=== PATIENT | female | born 1985 | race Caucasian/White ===

== ENCOUNTER → 2020-10-16 02:35 | Outpatient (CLI) | payer OTHER, SELFPAY ==
[2020-10-16 18:15] LABS: SARS-CoV-2 RNA PCR Negative
== END ==
PROVIDERS: PCP Family Medicine; Visit Provider Obstetrics & Gynecology Gynecology
DX: Z01.812 Encounter for preprocedural laboratory examination (principal); Z20.822 Contact with and (suspected) exposure to COVID-19
CPT/HCPCS: C9803; U0003; U0005

== ENCOUNTER 2020-10-19 00:39 | Day surgery (SDC) | payer OTHER, SELFPAY ==
[2020-10-09 13:35] VITALS: BMI 25.1
[2020-10-19 08:48] VITALS: BMI 25.4
[2020-10-19] MEDS: LACTATED RINGERS 1,000 ML 30 ML IV CONT (08:51)
[2020-10-19] MEDS: ACETAMINOPHEN 500 MG TABLET 1000 MG PO (08:52)
--- NOTE | 2020-10-19 08:57 | WPDHPUPDATE1 ---
History and Physical Update Update Date/Time: 10/19/20 08:57 History and Physical has been reviewed, including an updated exam of the patient. There are NO changes in the patient's condition. Risks, benefits, and alternatives have been discussed and questions answered. Patient agrees to proceed with procedure.
--- NOTE | 2020-10-19 08:57 | PM.HPGS ---
History of Present Illness History of Present Illness Consent: Risks, benefits, and alternatives have been discussed and questions answered. Patient agrees to proceed with procedure. Chief complaint: atypical glandular cells Narrative: Meggan Deutsch is a 35 year old female with Pap smear reading atypical glandular cells at her well check in March of 2020. Workup including colposcopy, endocervical curettings, and endometrial biopsy were negative in May of 2020. The plan was to repeat the Pap and endocervical curettings every 3 months. The Pap in August of 2020 was also atypical glandular cells. The endocervical curettings performed at the same time as the August Pap were normal. Due to the 2nd reading of atypical glanular cells without obvious source, it was recommended to proceed with LEEP conization as well as D&C hysteroscopy for further evaluation. The patient has completed her childbearing and her spouse has a vasectomy. Therefore future childbearing risks are not a factor. The risks of infection, bleeding, uterine perforation, and possible pathology are reviewed. The patient voices understanding and agrees to proceed. Review of Systems Review of Systems: Narrative: not repeated day of surgery; patient states no changes in status PMFSH Past Medical History Medical History (Updated 10/19/20 @ 09:03 by Rafaela Andrews MD) Depression Migraine (normal spontaneous vaginal delivery) x2 Surgical History Surgical History (Updated 10/19/20 @ 09:02 by Rafaela Andrews MD) S/P laparoscopic cholecystectomy S/P tonsillectomy Social History Social History Smoking status: Never smoker Alcohol intake: never Substance use: never Substance use type: does not use Living arrangements: with family Spiritual care concerns: No Meds Home Medications and Allergies Home Medications Medication Instructions Recorded Confirmed Type ascorbic acid (vitamin C) [Vitamin 1 g PO DAILY 10/09/20 10/09/20 History C] azithromycin 250 mg PO MONTHLY 10/09/20 10/09/20 History cholecalciferol (vitamin D3) 125 mcg PO DAILY 10/09/20 10/09/20 History [Vitamin D3] colestipol 1 g PO BID 10/09/20 10/09/20 History sertraline 50 mg PO DAILY 10/09/20 10/19/20 History spironolactone 100 mg PO DAILY 10/09/20 10/09/20 History Allergies Allergy/AdvReac Type Severity Reaction Status Date / Time No Known Allergies Allergy Verified 10/19/20 08:20 Exam : External Female Exam: normal external appearance Speculum Exam - Vagina: normal appearance of the vagina Speculum Exam - Cervix: normal appearance of the cervix Bimanual exam- vagina & uterus: normal bimanual exam and uterine size normal Bimanual Exam- Adnexa, other: normal adnexae and No adnexal tenderness Assessment and Plan Assessment and plan (1) Atypical glandular cells of undetermined significance (CYRIL) on cervical Pap smear: Code(s): R87.619 - Unspecified abnormal cytological findings in specimens from cervix uteri Status: Acute Assessment and Plan: normal colposcopy, ECC, and EMB CYRIL x 2 Plan D&C hysteroscopy with LEEP
[2020-10-19 09:00] VITALS: BP 104/72; PULSE 75; RESP 14; TEMP 36.2; O2SAT 100
--- NOTE | 2020-10-19 09:04 | WPDHPUPDATE1 ---
History and Physical Update Update Date/Time: 10/19/20 09:04 History and Physical has been reviewed, including an updated exam of the patient. There are NO changes in the patient's condition. Risks, benefits, and alternatives have been discussed and questions answered. Patient agrees to proceed with procedure.
--- NOTE | 2020-10-19 09:40 | P.PNAN_ITS ---
Anes - Initial Pre Proc Eval Procedure: Operation Date: 10/19/20 10:00 Proposed Procedures p Hysteroscopy, Dilation and Curettage, - Rafaela Andrews MD s Loop Electrical Excision Procedure - Rafaela Andrews MD Date/Time: 10/19/20 09:40 Surgeon: Rafaela Andrews MD Pre Op Diagnosis: atypical glandular cells Patient Data Age: 35 Gender: F Height: 5 ft 1 in Weight: 61 kg Allergies Allergy/AdvReac Type Severity Reaction Status Date / Time No Known Allergies Allergy Verified 10/19/20 08:20 Home Medications Medication Instructions Recorded Confirmed Type ascorbic acid (vitamin C) [Vitamin 1 g PO DAILY 10/09/20 10/09/20 History C] azithromycin 250 mg PO MONTHLY 10/09/20 10/09/20 History cholecalciferol (vitamin D3) 125 mcg PO DAILY 10/09/20 10/09/20 History [Vitamin D3] colestipol 1 g PO BID 10/09/20 10/09/20 History sertraline 50 mg PO DAILY 10/09/20 10/19/20 History spironolactone 100 mg PO DAILY 10/09/20 10/09/20 History Patient hx anesthesia problems: none Family hx anesthesia problems: none [facility] Past Medical History Medical History (Updated 10/19/20 @ 09:03 by Rafaela Andrews MD) Depression Migraine (normal spontaneous vaginal delivery) x2 Surgical History Surgical History (Updated 10/19/20 @ 09:02 by Rafaela Andrews MD) S/P laparoscopic cholecystectomy S/P tonsillectomy Social History Social History Smoking status: Never smoker Alcohol intake: never Substance use: never Substance use type: does not use Living arrangements: with family Spiritual care concerns: No Anes - Eval Final PreProcedure Day of Procedure 10/19/20 09:40 Patient weight: normal Heart: regular rate and rhythm Lungs: clear to auscultation Airway: Mallampati scale class II Neurological: alert and oriented Last oral intake: >/= 8 hours ASA classification: II Emergent: no Anesthetic plan: proceed Anesthesia type and monitoring: general GIVS and standard monitoring Informed Consent: The patient's anesthetic plan and its attendant risks and benefits were discussed with the patient/family/POA. Questions were solicited and answers provided to the satisfaction of the patient/family/POA.
[2020-10-19] MEDS: LIDO 1%/EPINEPHRINE 1:100,000 50 ML VIAL 10 ML INFILTRATE (10:15)
--- NOTE | 2020-10-19 10:26 | P.OP_ITS ---
Procedure Note - Detailed Date of Procedure 10/19/20 Pre-op Diagnosis atypical glandular cells Post-op Diagnosis same Procedure Performed LEEP conization with top hat; D&C hysteroscopy Surgeon Rafaela Andrews MD Anesthesia MAC and local Findings Normal appearing cervix; uterus sounds to 7.5cm; endometrium appears grossly normal Description of Procedure The patient is taken to the operating room and placed under anesthesia in the dorsal lithotomy position. She is prepped and draped in the usual sterile fashion. Coated bivalve speculum was placed in the vagina and the cervix is injected in each quadrant with 1% lidocaine with epinephrine. The 2.5x1cm loop is used to perform a 1 pass LEEP conization set at 60 w of cutting power. A 1x1cm loop is used to perform a 1 pass top hat. The cervix is grasped on the anterior lip with a tenaculum and the uterus is sounded to 7.5cm. The cervix is serially dilated with Hegar. The hysteroscope is placed with no abnormalities noted. Hysteroscope was removed and the sharp curette is used to curette the e ndometrium until a good uterine cry was noted in all areas. All instruments are removed. Sponge, needle, and instrument counts are correct per the OR staff. Patient is awakened from anesthesia and taken to recovery in stable condition. Estimated Blood Loss 5 Drains No Packing No Pathology yes (LEEP marked at 12:00 p.m. with suture; top hat marked at 12:00 p.m. with suture; endometrial curettings) Complications No immediate complications Condition stable Disposition PACU
[2020-10-19 10:29] VITALS: BP 109/70; PULSE 67; RESP 14; O2SAT 98
[2020-10-19 10:59] VITALS: BP 116/71; PULSE 55; RESP 16; O2SAT 100
[2020-10-19 11:29] VITALS: BP 103/65; PULSE 56; RESP 18
== END 2020-10-19 11:42 | disposition home or self-care (01) ==
PROVIDERS: PCP Family Medicine; Visit Provider Obstetrics & Gynecology Gynecology
PROC: 0U5B8ZZ Destruction of Endometrium, Via Natural or Artificial Opening Endoscopic (ICD-10-PCS; CPT 58563; principal; 2020-10-19 10:00)
PROC: 0UBC7ZZ Excision of Cervix, Via Natural or Artificial Opening (ICD-10-PCS; CPT 57522; 2020-10-19 10:00)
DX: C53.0 Malignant neoplasm of endocervix (principal); F32.9 Major depressive disorder, single episode, unspecified
CPT/HCPCS: 57522; 88305; A9270; C9803; J2250; J2704; J3010; J7030; J7120; U0003; U0005